=== PATIENT | male | born 1955 | race Caucasian/White ===

== ENCOUNTER 2018-05-29 09:23 | Emergency (ER) | payer OTHER ==
[~2018-05-29] VITALS: Ht 172.7 cm; Wt 97.5 kg
--- NOTE | ~2018-05-29 | EKG ---
[place], [place] ELECTROCARDIOGRAM REPORT NAME: BERNIE PINA UNIT #: [id number] ROOM: DOCTOR: EPIPHANY DRAFT REPORT BIRTHDATE: [birth year] [facility] Test Date: 2018-05-29 Test Time: 09:50:52 Pat Name: BERNIE PINA Department: Room: Gender: [employer]: : [id number] Requested By: DYANA RAVI DNP Order Number: [id number] Reading MD: Giles Costello MD Measurements Intervals [place] Rate: 97 P: 71 NC: 152 QRS: 3 QRSD: 96 T: 45 QT: 355 QTc: 451 Interpretive Statements Sinus rhythm No previous ECG available for comparison Electronically Signed On 05-29-2018 17:43:33 PST by Giles Costello MD CM:EKGRPT:ELECTROCARDIOGRAM REPORT [id number] DYANA RAVI DNP EPIPHANY DRAFT REPORT DYANA RAVI DNP
[~2018-05-29 09:23] MED LIST: 'XANAX1 MG PO; ANAPROX DS550 MG PO; ANTIVERT/2525 MG PO; AUGMENTIN 875875 MG PO; B-1100 M1 PO; BUSPAR5 MG; DAYPRO600 M1 PO; FLONASE 0.05% 121 EA NAS; HYDROCODONE BIT1 T11 PO; K-DUR 1010 MEQ PO; LASIX20 MG PO; LEADER NIC21 MG/24 H TD; MEDROL DOSEPAK4 MG PO; MOBIC7.5 MG PO; MOTRIN800 MG PO; Motrin,Rufen800 MG PO; NAPROSYN500 MG PO; NASONEX0.05 MG/AC NAS; THIORIDAZINE HC50 MG PO; VENTOLIN H0.09 MG/AC INH; VIBRAMYCIN100 MG PO; VICODIN ES 7501 TAB PO; Vicodin 5/500 505 MG PO; XANAX0.5 MG PO; XANAX1 MG PO; ZYRTEC10 M2 PO
[2018-05-29 09:53] LABS: BASO % 0.2 % (0.0-1.0); EOS # 0.1 10*3/uL (0.0-0.4); EOS % 0.6 % (1.0-4.0); HEMATOCRIT 49.2 % (42.0-52.0); LYMPH # 1.2 10*3/uL (1.3-4.4); LYMPH % 9.3 % (27.0-41.0); MEAN CORPUSCULAR HGB 32.1 pg (27.0-31.0); MEAN CORPUSCULAR HGB CONC 34.6 g/dl (33.0-37.0); MEAN PLATELET VOLUME 9.1 fl (9.6-12.3); MONO % 7.7 % (3.0-9.0); NEUT # 10.1 10*3/uL (2.3-7.9); NEUT % 81.9 % (47.0-73.0); PLATELET COUNT AUTOMATED 199 10*3/uL (130-400); RED BLOOD COUNT 5.29 10*6/uL (4.50-5.90); RED CELL DISTRI WIDTH 12.1 % (0-14.5); WHITE BLOOD COUNT 12.4 10*3/uL (4.8-10.8)
[2018-05-29 10:08] LABS: ACT PARTIAL THROMBO TIME 22.4 SECONDS (20.8-31.5); ALKALINE PHOSPHATASE 63 U/L (45-117); BUN 15 mg/dl (7-24); CHLORIDE 104 mmol/L (98-107); CREATININE 1.08 mg/dL (0.70-1.30); SGOT/AST 14 IU/L (3-35); SGPT/ALT 20 U/L (12-78); SODIUM 138 mmol/L (136-145); TOTAL PROTEIN 7.8 gm/dL (6.4-8.2)
[2018-05-29 10:10] LABS: TROPONIN I < 0.015 ng/ml (<0.045)
[2018-05-29] MEDS ORDERED: MUCINEX1200 M1 PO (10:16)
[2018-05-29] MEDS ORDERED: AVPAK AZITHROM250 MG PO (10:16)
[2018-05-29] MEDS ORDERED: PROAIR HFA8.5 GM INH (10:16)
[2018-05-29] MEDS ORDERED: PREDNISONE50 MG PO (10:16)
== END 2018-05-29 11:38 | disposition home or self-care (01) ==
LOC: ED 09:23
PROVIDERS: Nurse Practitioner Family
DX: J20.9 Acute bronchitis, unspecified (principal); F17.200 Nicotine dependence, unspecified, uncomplicated; Z79.899 Other long term (current) drug therapy

== ENCOUNTER 2022-04-16 19:45 | Emergency (ER) | payer MEDICARE ==
[~2022-04-16] VITALS: Ht 172.7 cm; Wt 96.2 kg
[~2022-04-16 19:45] MED LIST changes: +AVPAK AZITHROM250 MG PO; +MUCINEX1200 M1 PO; +PREDNISONE50 MG PO; +PROAIR HFA8.5 GM INH
[2022-04-16 20:35] LABS: BASO % 0.4 % (0.0-1.0); EOS # 0.2 10*3/uL (0.0-0.4); EOS % 1.8 % (1.0-4.0); HEMATOCRIT 44.3 % (42.0-52.0); LYMPH # 1.3 10*3/uL (1.3-4.4); MEAN CELL VOLUME 93.9 fl (80.0-94.0); MEAN CORPUSCULAR HGB 32.2 pg (27.0-31.0); MEAN CORPUSCULAR HGB CONC 34.3 g/dl (33.0-37.0); MEAN PLATELET VOLUME 8.5 fl (9.6-12.3); MONO # 0.6 10*3/uL (0.1-1.0); MONO % 5.4 % (3.0-9.0); NEUT # 8.7 10*3/uL (2.3-7.9); NEUT % 79.8 % (47.0-73.0); PLATELET COUNT AUTOMATED 252 10*3/uL (130-400); RED BLOOD COUNT 4.72 10*6/uL (4.50-5.90); RED CELL DISTRI WIDTH 12.8 % (0-14.5); WHITE BLOOD COUNT 10.8 10*3/uL (4.8-10.8)
[2022-04-16 20:52] LABS: ALKALINE PHOSPHATASE 68 U/L (45-117); BUN 9 mg/dl (7-24); CHLORIDE 102 mmol/L (98-107); POTASSIUM 3.7 mmol/L (3.5-5.1); SGPT/ALT 22 U/L (12-78); SODIUM 133 mmol/L (136-145); TOTAL PROTEIN 6.6 gm/dL (6.4-8.2)
== END 2022-04-17 09:15 | disposition home or self-care (01) ==
LOC: ED 19:45
PROVIDERS: Nurse Practitioner Family
DX: S01.01XA Laceration without foreign body of scalp, initial encounter (principal); F10.920 Alcohol use, unspecified with intoxication, uncomplicated; W18.39XA Other fall on same level, initial encounter; Y93.89 Activity, other specified; Y92.89 Other specified places as the place of occurrence of the external cause; Y90.8 Blood alcohol level of 240 mg/100 ml or more; Y99.8 Other external cause status

== ENCOUNTER 2022-04-24 10:51 | Emergency (ER) | payer MEDICARE | END 2022-04-24 12:19 | disposition home or self-care (01) | LOC: ED 10:51 | DX: S01.91XD Laceration without foreign body of unspecified part of head, subsequent encounter (principal); Z48.02 Encounter for removal of sutures; F17.200 Nicotine dependence, unspecified, uncomplicated; Z79.899 Other long term (current) drug therapy; W19.XXXD Unspecified fall, subsequent encounter ==

== ENCOUNTER 2022-10-19 13:26 | Emergency (ER) | payer MEDICARE ==
[~2022-10-19] VITALS: Ht 177.8 cm; Wt 94.3 kg
[2022-10-19] MEDS ORDERED: PREDNISONE50 MG PO (14:36)
[2022-10-19] MEDS ORDERED: CYCLOBENZAPRINE10 MG PO (14:36)
== END 2022-10-19 14:45 | disposition home or self-care (01) ==
LOC: ED 13:26
DX: S39.012A Strain of muscle, fascia and tendon of lower back, initial encounter (principal); X50.0XXA Overexertion from strenuous movement or load, initial encounter; Y93.89 Activity, other specified; Y92.89 Other specified places as the place of occurrence of the external cause; Y99.8 Other external cause status

== ENCOUNTER 2023-10-11 11:53 | Emergency (ER) | payer MEDICARE ==
[~2023-10-11] VITALS: Ht 175.2 cm; Wt 95.3 kg
[~2023-10-11 11:53] MED LIST changes: +CYCLOBENZAPRINE10 MG PO
[2023-10-11] MEDS ORDERED: CEPHALEXIN500 M1 PO (12:17)
[2023-10-11] MEDS ORDERED: NAPROSYN500 MG PO (12:17)
[2023-10-11] MEDS ORDERED: CEPHALEXIN 500 MG CAP PO ONE (12:20)
== END 2023-10-11 12:35 | disposition home or self-care (01) ==
LOC: ED 11:53
DX: L73.9 Follicular disorder, unspecified (principal); Z79.899 Other long term (current) drug therapy; Z79.2 Long term (current) use of antibiotics

== ENCOUNTER 2023-12-20 10:29 | Emergency (ER) | payer OTHER ==
[~2023-12-20] VITALS: Ht 172.7 cm; Wt 90.7 kg
[~2023-12-20 10:29] MED LIST changes: +CEPHALEXIN500 M1 PO
[2023-12-20] MEDS ORDERED: Lidocaine Hydrochloride 2 ML AMP SC ONE (11:10)
[2023-12-20] MEDS ORDERED: CEPHALEXIN500 M1 PO (11:36)
[2023-12-20] MEDS ORDERED: Tdap Vaccine 0.5 ML SYR (Adult Vaccine) IM ONE (11:40)
[2023-12-20] MEDS ORDERED: ceFAZolin sodium 1 GM VIAL IM ONE (11:40)
[2023-12-20] MEDS ORDERED: HYDROCODONE-AC1 EAC1 PO (11:58)
[2023-12-20] MEDS ORDERED: Acetaminophen/Hydrocodone 5 MG/325 MG TABLET PO ONE (12:00)
[2023-12-20] MEDS ORDERED: Water, Sterile 10 ML VIAL ONE (13:22)
== END 2023-12-20 14:55 | disposition home or self-care (01) ==
LOC: ED 10:29
DX: S62.612A Displaced fracture of proximal phalanx of right middle finger, initial encounter for closed fracture (principal); F41.9 Anxiety disorder, unspecified; F32.A Depression, unspecified; J45.909 Unspecified asthma, uncomplicated; K21.9 Gastro-esophageal reflux disease without esophagitis; Z98.890 Other specified postprocedural states; W22.8XXA Striking against or struck by other objects, initial encounter; Y93.89 Activity, other specified; Y92.89 Other specified places as the place of occurrence of the external cause; Y99.0 Civilian activity done for income or pay